=== PATIENT | female | born 1980 | race Caucasian/White ===

== ENCOUNTER 2019-02-17 15:23 | Emergency (ER) | payer OTHER ==
[2019-02-17] MEDS ORDERED: [UNRECOGNIZED DRUG - OTHER] PO (17:07)
[2019-02-17] MEDS ORDERED: hemp oil (17:07)
[2019-02-17] MEDS ORDERED: CYCL10TA PO (17:41)
[2019-02-17] MEDS ORDERED: NAPR-837 PO (17:41)
[2019-02-17 17:49] VITALS: BP 134/84
== END 2019-02-17 17:57 | disposition home or self-care (01) ==
LOC: M ED 15:23
DX: M54.89 Other dorsalgia (principal); M62.830 Muscle spasm of back; Z79.899 Other long term (current) drug therapy; Z88.6 Allergy status to analgesic agent; Z88.1 Allergy status to other antibiotic agents; Z88.5 Allergy status to narcotic agent; Z88.8 Allergy status to other drugs, medicaments and biological substances; Z91.89 Other specified personal risk factors, not elsewhere classified; Z91.013 Allergy to seafood

== ENCOUNTER 2019-09-04 11:38 | Emergency (ER) | payer OTHER ==
[~2019-09-04] VITALS: Ht 175.3 cm; Wt 85.9 kg
[~2019-09-04 11:38] MED LIST: CYCL-707 PO; NAPR-837 PO; [UNRECOGNIZED DRUG - OTHER] PO; hemp oil
[2019-09-04 11:39] VITALS: BP 137/82
[2019-09-04] MEDS ORDERED: LEVORA-28 (11:45)
[2019-09-04] MEDS ORDERED: PENI500T PO (12:12)
== END 2019-09-04 12:22 | disposition home or self-care (01) ==
LOC: M ED 11:38
DX: J02.0 Streptococcal pharyngitis (principal); Z88.1 Allergy status to other antibiotic agents; Z88.3 Allergy status to other anti-infective agents; Z88.5 Allergy status to narcotic agent; Z88.6 Allergy status to analgesic agent; Z88.8 Allergy status to other drugs, medicaments and biological substances; Z91.013 Allergy to seafood; Z79.899 Other long term (current) drug therapy

== ENCOUNTER → 2020-02-11 | Outpatient (CLI) | payer OTHER, SELFPAY ==
[~2020-02-11] MED LIST changes: +LEVORA-28; +PENI500T PO
== END ==
LOC: M LABSMTC 11:34
PROVIDERS: ATTEND Pediatrics
DX: Z11.59 Encounter for screening for other viral diseases (principal); Z20.828 Contact with and (suspected) exposure to other viral communicable diseases

== ENCOUNTER → 2020-02-17 | Outpatient (CLI) | payer SELFPAY | LOC: M LABSMTC 09:41 | PROVIDERS: ATTEND Pediatrics | DX: Z20.828 Contact with and (suspected) exposure to other viral communicable diseases (principal) ==

== ENCOUNTER → 2020-02-20 | Outpatient (CLI) | payer SELFPAY | LOC: M LABSMTC 08:41 | PROVIDERS: ATTEND Pediatrics | DX: Z20.828 Contact with and (suspected) exposure to other viral communicable diseases (principal) ==

== ENCOUNTER → 2025-02-16 | Outpatient (RCR) | LOC: M EMP 02-13 08:16 | PROVIDERS: ATTEND Family Medicine | DX: Z20.828 Contact with and (suspected) exposure to other viral communicable diseases (principal) ==